=== PATIENT | female | born 1950 | race Caucasian/White ===

== ENCOUNTER 2017-11-09 20:04 | Emergency (ER) | payer MEDICARE, MEDICAID ==
[~2017-11-09] VITALS: Ht 157.5 cm; Wt 69.0 kg
[~2017-11-09 20:04] MED LIST: CLOP75TA33 PO; EYE DROP; GEMF600T3 PO; HYDR-569 PO; OMEP20CA10 PO; PRAV40TA3 PO; ZOLP6.252 PO
[2017-11-09 20:07] VITALS: BP 127/67
[2017-11-09] MEDS ORDERED: HYDR-3965 PO (20:40)
[2017-11-09] MEDS ORDERED: HYDROcodone/acetaminophen 5mg/325mg tablet PO ONE (20:40)
== END 2017-11-09 20:59 | disposition home or self-care (01) ==
LOC: ER 20:05
DX: M25.571 Pain in right ankle and joints of right foot (principal); E78.00 Pure hypercholesterolemia, unspecified; I10 Essential (primary) hypertension; J44.9 Chronic obstructive pulmonary disease, unspecified; G89.29 Other chronic pain; Z86.19 Personal history of other infectious and parasitic diseases; Z90.710 Acquired absence of both cervix and uterus; Z98.890 Other specified postprocedural states; Z60.2 Problems related to living alone; Z88.0 Allergy status to penicillin; Z79.899 Other long term (current) drug therapy
CPT/HCPCS: 29515; 73610; 99284

== ENCOUNTER 2019-12-30 08:09 | Day surgery (SDC) | payer MEDICARE, MEDICAID ==
[~2019-12-30] VITALS: Ht 160 cm; Wt 59.1 kg
[~2019-12-30 08:09] MED LIST changes: -GEMF600T3 PO; +GEMF600T89 PO; +HYDR-4383 PO; -HYDR-569 PO; -OMEP20CA10 PO; +OMEP20CA15 PO
[2019-12-30 08:15] VITALS: BP 136/73
[2019-12-30] MEDS ORDERED: PRED10TA23 PO (08:29)
[2019-12-30] MEDS ORDERED: fentaNYL/PF 50MCG/1 ML 2ML syringe ONE (08:37)
[2019-12-30] MEDS ORDERED: MIDAZolam 5mg/5ml vial ONE (08:38)
[2019-12-30 10:14] VITALS: BP 130/68
[2019-12-30 10:24] VITALS: BP 117/69
[2019-12-30 10:34] VITALS: BP 128/62
[2019-12-30 10:44] VITALS: BP 135/69
== END 2019-12-30 10:59 | disposition home or self-care (01) ==
LOC: GI LAB 08:09
PROVIDERS: ATTEND Internal Medicine Gastroenterology
DX: Z12.11 Encounter for screening for malignant neoplasm of colon (principal); K64.8 Other hemorrhoids; Z86.010 Personal history of colon polyps
CPT/HCPCS: G0105; G0500; J2250; J3010; J7040; 45378; 99152; A4620

== ENCOUNTER 2020-07-03 15:39 | Emergency (ER) | payer MEDICARE, MEDICAID ==
[~2020-07-03] VITALS: Ht 157.5 cm; Wt 52.3 kg
[~2020-07-03 15:39] MED LIST changes: -EYE DROP; -GEMF600T89 PO; -HYDR-4383 PO; +PRED10TA23 PO
[2020-07-03] MEDS ORDERED: ondansetron 4mg rapidly disintigrating tab PO ONE (16:10)
[2020-07-03] MEDS ORDERED: HYDROcodone/acetaminophen 5mg/325mg tablet PO ONE (16:10)
[2020-07-03] MEDS ORDERED: ACET-1025 PO (16:31)
[2020-07-03 16:58] VITALS: BP 122/72
== END 2020-07-03 17:01 | disposition home or self-care (01) ==
LOC: ER 15:39
DX: M25.561 Pain in right knee (principal); G89.29 Other chronic pain; E78.00 Pure hypercholesterolemia, unspecified; I10 Essential (primary) hypertension; J44.9 Chronic obstructive pulmonary disease, unspecified; F32.9 Major depressive disorder, single episode, unspecified; Z86.19 Personal history of other infectious and parasitic diseases; Z87.440 Personal history of urinary (tract) infections; Z90.710 Acquired absence of both cervix and uterus; Z98.890 Other specified postprocedural states; Z72.89 Other problems related to lifestyle; Z60.2 Problems related to living alone; Z88.0 Allergy status to penicillin; Z79.899 Other long term (current) drug therapy
CPT/HCPCS: 29505; 73564; 99283

== ENCOUNTER 2021-01-08 04:15 | Emergency (ER) | payer MEDICARE, MEDICAID ==
[~2021-01-08] VITALS: Ht 157.5 cm; Wt 51.6 kg
[2021-01-08 04:25] VITALS: BP 155/71
[2021-01-08] MEDS ORDERED: naproxen 500mg tablet PO ONE (05:00)
[2021-01-08] MEDS ORDERED: NAPR-56 PO (05:02)
== END 2021-01-08 05:20 | disposition home or self-care (01) ==
LOC: ER 04:16
DX: M25.511 Pain in right shoulder (principal); E78.00 Pure hypercholesterolemia, unspecified; I10 Essential (primary) hypertension; J44.9 Chronic obstructive pulmonary disease, unspecified; G89.29 Other chronic pain; F32.9 Major depressive disorder, single episode, unspecified; Z90.710 Acquired absence of both cervix and uterus; Z98.890 Other specified postprocedural states; Z72.89 Other problems related to lifestyle; Z60.2 Problems related to living alone; Z88.0 Allergy status to penicillin; Z79.899 Other long term (current) drug therapy
CPT/HCPCS: 99282

== ENCOUNTER 2021-09-20 16:00 | Emergency (ER) | payer MEDICARE, MEDICAID ==
[~2021-09-20] VITALS: Ht 157.5 cm; Wt 49.1 kg
[2021-09-20 16:57] VITALS: BP 129/78
--- NOTE | 2021-09-20 17:34 | NUR ---
PHONE CALL TO GABRIELLA. CASE REPORT NUMBER [id number]
--- NOTE | 2021-09-20 18:26 | NUR ---
pt to ct
== END 2021-09-20 19:23 | disposition home or self-care (01) ==
LOC: ER 16:00
DX: M54.2 Cervicalgia (principal); R59.0 Localized enlarged lymph nodes; R13.10 Dysphagia, unspecified; E78.00 Pure hypercholesterolemia, unspecified; I10 Essential (primary) hypertension; J44.9 Chronic obstructive pulmonary disease, unspecified; G89.29 Other chronic pain; Z87.440 Personal history of urinary (tract) infections; Z86.19 Personal history of other infectious and parasitic diseases; Z72.89 Other problems related to lifestyle; Z98.890 Other specified postprocedural states; Z90.710 Acquired absence of both cervix and uterus; Z88.0 Allergy status to penicillin; Z79.899 Other long term (current) drug therapy
CPT/HCPCS: 70490; 93880; 99284

== ENCOUNTER 2021-10-30 17:24 | Emergency (ER) | payer MEDICARE, MEDICAID ==
[~2021-10-30] VITALS: Ht 157.5 cm; Wt 49.1 kg
[2021-10-30 17:27] VITALS: BP 138/69
[2021-10-30] MEDS ORDERED: ibuprofen tablet 400 MG TABLET PO ONE (18:05)
[2021-10-30] MEDS ORDERED: IBUP-1984 PO (18:07)
== END 2021-10-30 18:27 | disposition home or self-care (01) ==
LOC: ER 17:24
DX: M79.644 Pain in right finger(s) (principal); I10 Essential (primary) hypertension; J44.9 Chronic obstructive pulmonary disease, unspecified; G89.29 Other chronic pain; F32.A Depression, unspecified; Z88.0 Allergy status to penicillin; Z79.891 Long term (current) use of opiate analgesic; Z79.899 Other long term (current) drug therapy
CPT/HCPCS: 29125; 99283

== ENCOUNTER 2022-03-20 23:25 | Emergency (ER) | payer MEDICARE, MEDICAID ==
[~2022-03-20] VITALS: Ht 157.5 cm; Wt 49.1 kg
[2022-03-21 03:52] VITALS: BP 125/72
== END 2022-03-21 03:54 | disposition home or self-care (01) ==
LOC: ER 23:26
DX: M79.605 Pain in left leg (principal); E78.00 Pure hypercholesterolemia, unspecified; I10 Essential (primary) hypertension; J44.9 Chronic obstructive pulmonary disease, unspecified; Z88.0 Allergy status to penicillin; Z90.710 Acquired absence of both cervix and uterus
CPT/HCPCS: 73552; 73564; 73590; 99284

== ENCOUNTER 2022-06-19 15:01 | Emergency (ER) | payer MEDICARE, MEDICAID ==
[~2022-06-19] VITALS: Ht 157.5 cm; Wt 45.5 kg
[2022-06-19 16:01] VITALS: BP 146/68
--- NOTE | 2022-06-19 16:07 | NUR ---
PT REPORTS IN TRIAGE SHE WENT INTO CARDIAC ARREST 2 WEEKS AGO AND WAS HOSPITALIZED AT [facility].
[2022-06-19] MEDS ORDERED: SULF1TAB49 PO (21:11)
[2022-06-20] MEDS ORDERED: MAGN296S89 PO (23:15)
== END 2022-06-19 21:53 | disposition home or self-care (01) ==
LOC: ER 15:02
DX: L02.31 Cutaneous abscess of buttock (principal); K59.00 Constipation, unspecified; E78.00 Pure hypercholesterolemia, unspecified; I10 Essential (primary) hypertension; J44.9 Chronic obstructive pulmonary disease, unspecified; F32.9 Major depressive disorder, single episode, unspecified; F15.10 Other stimulant abuse, uncomplicated; Z88.0 Allergy status to penicillin; Z90.49 Acquired absence of other specified parts of digestive tract; Z79.899 Other long term (current) drug therapy
CPT/HCPCS: 10060; 99283

== ENCOUNTER 2022-06-20 22:53 | Emergency (ER) | payer MEDICARE, MEDICAID ==
[~2022-06-20] VITALS: Ht 157.5 cm; Wt 55.0 kg
[~2022-06-20 22:53] MED LIST changes: +SULF1TAB49 PO
[2022-06-20 22:55] VITALS: BP 133/76
[2022-06-20] MEDS ORDERED: MAGN296S89 PO (23:15)
== END 2022-06-20 23:50 | disposition home or self-care (01) ==
LOC: ER 22:54
DX: K59.00 Constipation, unspecified (principal); L02.31 Cutaneous abscess of buttock; E78.00 Pure hypercholesterolemia, unspecified; I10 Essential (primary) hypertension; J44.9 Chronic obstructive pulmonary disease, unspecified; G89.29 Other chronic pain; F32.9 Major depressive disorder, single episode, unspecified; F15.90 Other stimulant use, unspecified, uncomplicated; Z86.19 Personal history of other infectious and parasitic diseases; Z90.710 Acquired absence of both cervix and uterus; Z98.890 Other specified postprocedural states; Z72.89 Other problems related to lifestyle; Z88.0 Allergy status to penicillin; Z79.899 Other long term (current) drug therapy
CPT/HCPCS: 99282

== ENCOUNTER → 2023-03-22 | Emergency (ER) | payer MEDICARE, MEDICAID ==
[~2023-03-22] VITALS: Ht 157.5 cm; Wt 48.5 kg
[~2023-03-22] MED LIST changes: +DOXY-356 PO; +DOXYCYCLINE 100MG CAPSULE PO STA; +LIDOCAINE 1%/EPI 1:100,000 inj. 10 ML multi-dose vial SQ ONE; +LIDOcaine 1% W/epiNEPHrine 1:100,000 20ml vial SQ ONE; +MAGN296S89 PO; -SULF1TAB49 PO
[2023-03-22 21:22] VITALS: BP 118/74; PULSE 71; RESP 18; TEMP 98.1; O2SAT 99
== END | disposition home or self-care (01) ==
LOC: ER 17:50
DX: L02.612 Cutaneous abscess of left foot (principal); I10 Essential (primary) hypertension; E78.00 Pure hypercholesterolemia, unspecified; J44.9 Chronic obstructive pulmonary disease, unspecified; F15.90 Other stimulant use, unspecified, uncomplicated; Z88.0 Allergy status to penicillin; Z79.899 Other long term (current) drug therapy; Z79.2 Long term (current) use of antibiotics; Z90.710 Acquired absence of both cervix and uterus
CPT/HCPCS: 26010; 73630; 99283; A6449

== ENCOUNTER 2023-10-12 10:22 | Emergency (ER) | payer MEDICARE, MEDICAID ==
[~2023-10-12] VITALS: Ht 157.5 cm; Wt 53.2 kg
[~2023-10-12 10:22] MED LIST changes: -DOXY-356 PO; -DOXYCYCLINE 100MG CAPSULE PO STA; -LIDOCAINE 1%/EPI 1:100,000 inj. 10 ML multi-dose vial SQ ONE; -LIDOcaine 1% W/epiNEPHrine 1:100,000 20ml vial SQ ONE
[2023-10-12 10:37] VITALS: BP 125/64; PULSE 88; RESP 15; TEMP 97.4; O2SAT 98
[2023-10-12] MEDS ORDERED: DICL20GE TP (12:40)
[2023-10-12] MEDS: ibuprofen tablet 400 MG TABLET PO ONE (12:55)
[2023-10-12] MEDS: DICLOFENAC SODIUM 1% gel 1 APPLIC APPLIC TP SCH (12:56)
== END 2023-10-12 13:07 | disposition home or self-care (01) ==
LOC: ER 10:22
DX: S63.642A Sprain of metacarpophalangeal joint of left thumb, initial encounter (principal); M19.042 Primary osteoarthritis, left hand; E78.00 Pure hypercholesterolemia, unspecified; I10 Essential (primary) hypertension; J45.909 Unspecified asthma, uncomplicated; J44.9 Chronic obstructive pulmonary disease, unspecified; G89.29 Other chronic pain; F32.A Depression, unspecified; Z90.710 Acquired absence of both cervix and uterus; F10.90 Alcohol use, unspecified, uncomplicated; F15.90 Other stimulant use, unspecified, uncomplicated; Z60.2 Problems related to living alone; Z72.89 Other problems related to lifestyle; Z88.0 Allergy status to penicillin; Z79.899 Other long term (current) drug therapy; Z79.52 Long term (current) use of systemic steroids; X58.XXXA Exposure to other specified factors, initial encounter; Y93.89 Activity, other specified; Y92.89 Other specified places as the place of occurrence of the external cause; Y99.8 Other external cause status
CPT/HCPCS: 73140; 99283

== ENCOUNTER 2024-11-13 18:08 | Emergency (ER) | payer MEDICARE, MEDICAID ==
[~2024-11-13] VITALS: Ht 157.5 cm; Wt 58.9 kg
[~2024-11-13 18:08] MED LIST changes: +DICL20GE TP; -ZOLP6.252 PO; +[UNRECOGNIZED DRUG - CODE] PO
[2024-11-13] MEDS: HYDROcodone/acetaminophen 10/325mg tab PO STA (18:31)
--- NOTE | 2024-11-13 19:07 | RADIOLOGY REPORT ---
CLINICAL INDICATION: PAIN TECHNIQUE: 3 radiographic views of the right wrist were obtained. Comparison: DI FOOT, COMPLETE (3VW MIN) on DOS: 03/22/23 FINDINGS/IMPRESSION: There is no evidence of acute fracture or dislocation. Severe degenerative changes of the 1st carpometacarpal joint. Diffuse demineralization. The alignment is anatomical. There is no radiopaque foreign body.
--- NOTE | 2024-11-13 19:14 | Physician Documentation ---
History of Present Illness ~ Chief Complaint: Wrist pain Stated Complaint: RT WRIST PAIN/ARM Time Seen by MD: 18:43 Primary Medical Doctor: [facility] HPI 74-year-old female with complaints of right wrist pain with unknown origin of swelling and pain no history of falls. Patient states that around 1:00 a.m. she was laying her lounger turned off the TV and woke up this morning with wrist pain and decreased movement. Tetanus within 5 years: No Medication Reconciliation Allergies: Coded Allergies: Penicillins (Verified Allergy, Intermediate, 11/13/24) Scheduled Clopidogrel Bisulfate (Clopidogrel), 1 TABLET PO DAILY, (Reported) Magnesium Citrate (Magnesium Citrate), 296 ML PO ONCE Omeprazole (Omeprazole), 1 CAP PO DAILY, (Reported) Pravastatin Sodium (Pravastatin Sodium), 1 TABLET PO HS, (Reported) Prednisone (Prednisone), 1 TABLET PO DAILY, (Reported) Zolpidem Tartrate (Ambien Cr), 1 TABLET PO HS, (Reported) Scheduled PRN Diclofenac Sodium (Voltaren Arthritis Pain), 30 GM TP BID PRN for pain Past Medical History Past Medical History: *CARDIOVASCULAR*, High Cholesterol, Hypertension, Asthma, COPD, Hepatitis C, UTI, Chronic Pain, Depression Past Surgical History: hysterectomy, orthopedic surgeries, other Other Past Surgical History: eye surgery Alcohol Use: Alcoholic Drug Use: none, methamphetamine Lives with: Alone Lives In: Home Review of Systems All Other Systems at this time: Reviewed and Negative Musculoskeletal: Reports: see HPI Physical Exam Vital Signs: RN Vital Signs have been reviewed: Yes, Temperature: 98.8, Heart Rate: 91, Respiratory Rate: 16, BP: 134/74, Pulse Oximetry: 95, Weight: 58.900 Oxygen Flow Rate: 0 Physical Exam General: Alert, no apparent distress. HEENT: PERRL, EOMI, no injection, moist mucous membranes. Respiratory: Lungs clear, no respiratory distress. Chest: No accessory muscle use. Cardiovascular: Regular rate and rhythm, no murmurs. Remedies: Right wrist with swelling minimal range of motion due to pain sensation circulation intact distally no obvious ecchymosis or deformity swelling at to the radial aspect of the wrist Neurologic: Oriented x4. Psychiatric: Normal mood and affect. Skin: Normal color, warm and dry. No edema, no ecchymosis. Progress Results/Orders Results/Orders Medications Received in ER Medications (Trade) Dose Ordered Sig/Rossi Route PRN Reason Start Time Stop Time Status Last Admin Dose Admin (Bud 10/325mg tab) 1 tab ONCE STAT PO 11/13/24 18:25 11/13/24 18:27 DC 11/13/24 18:31 1 TAB Vital Signs 11/13/24 11/13/24 18:22 18:31 Temp 98.8 Pulse 91 Resp 16 16 B/P (MAP) 134/74 Pulse Ox 95 O2 Flow Rate 0 EKG/XRAY/CT/US/VASC/MRI Bone/Soft Tissue X-Ray (Ext.) : Additional Comment CLINICAL INDICATION: PAIN TECHNIQUE: 3 radiographic views of the right wrist were obtained. Comparison: DI FOOT, COMPLETE (3VW MIN) on DOS: 03/22/23 FINDINGS/IMPRESSION: There is no evidence of acute fracture or dislocation. Severe degenerative changes of the 1st carpometacarpal joint. Diffuse demineralization. The alignment is anatomical. There is no radiopaque foreign body. Medical Decision Making Findings Patient denies any obvious injury she is unaware of any over use that would have caused the swelling and pain to her right wrist. Patient does state she has arthritis. X-ray was negative for any osseous abnormality. Differentials include gout, tenosynovitis, arthritis dislocation and fracture. With x-ray reassuring a velcro wrist splint with discussion on anti-inflammatory medication and follow up with primary care on Saturday. Wrist Diff Dx:Considerations: Include: Arthritis, Gout, Rheumatoid, Contusion, Dislocation, Fracture-radius, Fracture-ulna, Strain, Other Departure Time of Disposition: 19:18 Disposition: 01 HOME / SELF CARE / HOMELESS Impression: Primary Impression: Wrist joint pain Condition: Stable Discharge Instructions: Wrist Pain, Adult Additional Instructions: CLINICAL INDICATION: PAIN TECHNIQUE: 3 radiographic views of the right wrist were obtained. Comparison: DI FOOT, COMPLETE (3VW MIN) on DOS: 03/22/23 FINDINGS/IMPRESSION: There is no evidence of acute fracture or dislocation. Severe degenerative changes of the 1st carpometacarpal joint. Diffuse demineralization. The alignment is anatomical. There is no radiopaque foreign body. Referrals: NO PRIMARY CARE PROVIDER (PCP) Education Educated: Patient Educated regarding: diagnosis, treatment, need for follow up Signature Scribe Signature: No Scribe Attestation: The note accurately reflects work and decisions made by me.Henrietta Wade - GENI 11/13/24 19:31 HENRIETTA WADE NP Nov 13, 2024 19:14
[2024-11-13] MEDS: ibuprofen tablet 400 MG TABLET PO ONE (19:43)
[2024-11-13 20:01] VITALS: BP 130/82; PULSE 67; RESP 16; TEMP 98.6; O2SAT 99
== END 2024-11-13 20:03 | disposition home or self-care (01) ==
LOC: ER 18:08
DX: M25.531 Pain in right wrist (principal); E78.00 Pure hypercholesterolemia, unspecified; I10 Essential (primary) hypertension; J44.9 Chronic obstructive pulmonary disease, unspecified; F32.A Depression, unspecified; F15.90 Other stimulant use, unspecified, uncomplicated; Z88.0 Allergy status to penicillin; Z88.8 Allergy status to other drugs, medicaments and biological substances; Z90.710 Acquired absence of both cervix and uterus
CPT/HCPCS: 29125; 73110; 99283; L3908

== ENCOUNTER 2024-12-11 10:22 | Emergency (ER) | payer MEDICARE, MEDICAID ==
[~2024-12-11] VITALS: Ht 157.5 cm; Wt 58.6 kg
[~2024-12-11 10:22] MED LIST changes: +PRAV40TA17 PO; -PRAV40TA3 PO
[2024-12-11 10:26] VITALS: BP 164/89; PULSE 109; RESP 16; TEMP 98; O2SAT 98
--- NOTE | 2024-12-11 10:55 | RADIOLOGY REPORT ---
CLINICAL INDICATION: HAND PAIN,LEFT TECHNIQUE: Left DI HAND, COMPLETE (3VW MIN), DI WRIST, COMPLETE (3VW MIN) Comparison: DI WRIST, COMPLETE (3VW MIN) on DOS: 11/13/24, DI FINGER(S) on DOS: 10/12/23 FINDINGS/IMPRESSION: : There is no evidence of acute fracture or dislocation. Soft tissues are unremarkable. Advanced degenerative changes of the radiocarpal joint space and 1st CMC.
--- NOTE | 2024-12-11 19:46 | Physician Documentation ---
History of Present Illness ~ Chief Complaint: Wrist pain Stated Complaint: L ARM PAIN Time Seen by MD: 12:05 Primary Medical Doctor: [facility] Source: patient Mode of Arrival: POV Exam Limitations: no limitations Tetanus within 5 years: No Medication Reconciliation Allergies: Coded Allergies: Penicillins (Verified Allergy, Intermediate, 11/13/24) Scheduled Clopidogrel Bisulfate (Clopidogrel), 1 TABLET PO DAILY, (Reported) Magnesium Citrate (Magnesium Citrate), 296 ML PO ONCE Omeprazole (Omeprazole), 1 CAP PO DAILY, (Reported) Pravastatin Sodium (Pravastatin Sodium), 1 TABLET PO HS, (Reported) Prednisone (Prednisone), 1 TABLET PO DAILY, (Reported) Zolpidem Tartrate (Ambien Cr), 1 TABLET PO HS, (Reported) Scheduled PRN Diclofenac Sodium (Voltaren Arthritis Pain), 30 GM TP BID PRN for pain Past Medical History Past Medical History: *CARDIOVASCULAR*, High Cholesterol, Hypertension, Asthma, COPD, Hepatitis C, UTI, Chronic Pain, Depression Past Surgical History: hysterectomy, orthopedic surgeries, other Other Past Surgical History: eye surgery Smoking Status: Current every day smoker Alcohol Use: Alcoholic Drug Use: none, methamphetamine Lives with: Alone Lives In: Home Physical Exam Vital Signs: Temperature: 98.0, Source: Temporal, Heart Rate: 109, Respiratory Rate: 16, BP: 164/89, Pulse Oximetry: 98, Weight: 58.600 Oxygen Flow Rate: 0 Progress Results/Orders Results/Orders Vital Signs 12/11/24 10:26 Temp 98.0 Pulse 109 Resp 16 B/P (MAP) 164/89 Pulse Ox 98 O2 Flow Rate 0 Departure Disposition: 07 LEFT AWOL/ELOPED Referrals: NO PRIMARY CARE PROVIDER (PCP) Additional Comment Medical Screen Exam 74 y/o female seen in triage with c/o pain to left hand and wrist which she reports only recently started. Pain worse with movement. No chest pain or SOB. No neck pain. She denies any falls or injuries. Xray ordered by triage nurse. PEx: No redness of left hand or ecchymosis. a/p: Left hand and wrist pain, acute, pending imaging studies. No evidence of any immediate emergency. Okay for lobby while wait for imaging studies. The MSE note accurately reflects work and decisions made by me.Kavita ROSARIO 12/11/24 19:44 KAVITA QUIROZ Dec 11, 2024 19:46
== END 2024-12-11 13:31 | disposition left against medical advice (07) ==
LOC: ER 10:23
DX: M25.532 Pain in left wrist (principal); E78.00 Pure hypercholesterolemia, unspecified; F17.200 Nicotine dependence, unspecified, uncomplicated; I10 Essential (primary) hypertension; J44.9 Chronic obstructive pulmonary disease, unspecified; F32.A Depression, unspecified; F15.90 Other stimulant use, unspecified, uncomplicated; F10.90 Alcohol use, unspecified, uncomplicated; Y90.9 Presence of alcohol in blood, level not specified; Z90.710 Acquired absence of both cervix and uterus; Z88.0 Allergy status to penicillin; Z79.899 Other long term (current) drug therapy; Z72.89 Other problems related to lifestyle; Z60.2 Problems related to living alone
CPT/HCPCS: 73110; 73130; 99284